=== PATIENT | female | born 1970 | race Two or more races ===

== ENCOUNTER 2024-12-19 18:11 | Emergency (ER) | payer BC, OTHER ==
[~2024-12-19] VITALS: Ht 160 cm; Wt 67.1 kg
[2024-12-19 18:12] VITALS: BP 157/90; PULSE 60; RESP 15; TEMP 97.5; O2SAT 98
== END 2024-12-19 22:23 | disposition left against medical advice (07) ==
LOC: ER 18:11
DX: R10.9 Unspecified abdominal pain (principal)

== ENCOUNTER 2024-12-20 09:35 | Inpatient (IN) | payer BC ==
[~2024-12-20] VITALS: Ht 160 cm; Wt 71.0 kg
--- NOTE | 2024-12-20 09:53 | ED.PDOC ---
GI ASSESSMENT HPI Comments A 54 YEAR OLD FEMALE PRESENTS TO THE ED WITH COMPLAINT OF LOWER BACK PAIN THAT RADIATES TO LEFT LOWER ABDOMEN AND BLOOD IN STOOL. PATIENT STATES SHE HAS BEEN EXPERIENCING LOWER BACK PAIN THAT RADIATES TO HER LEFT LOWER ABDOMEN OFF AND ON FOR THE PAST 6 MONTHS WITH HER PAIN RETURNING AGAIN OVER THE PAST 6 WEEKS. PATIENT REPORTS SHE HAS ALSO HAD BLOOD IN HER STOOL FOR THE PAST 2 WEEKS. PATIENT NOTES THAT SHE HAS A HISTORY OF DIVERTICULITIS THAT WAS DIAGNOSED 6 MONTHS AGO WHERE SHE WAS TREATED AND GOT BETTER, BUT NOTES HER PAIN RETURNED OVER THE LAST 6 WEEKS. THE PAIN LEVEL IS 8/10 AT THIS TIME. PATIENT DENIES FEVER, CHILLS, SHORTNESS OF BREATH, CHEST PAIN, NAUSEA, VOMITING, HEADACHE, OR OTHER COMPLAINTS. NO OTHER SYMPTOMS OR MODIFYING FACTORS AT THIS TIME. PATIENT IS ALERT, ORIENTED X 4, AND HAS STEADY GAIT. Chief Complaint: Flank Pain Time Seen by MD: 09:41 Reviewed Notes: Nurses Notes, Medications, Allergies Allergies: Coded Allergies: NO KNOWN ALLERGIES (Unverified , 12/19/24) Information Source: Patient Mode of Arrival: Ambulatory Timing: Weeks Duration: Since onset Prehospital treatment: None Quality: Aching, Cramping, Colicky Vomitus: None Stool: Blood Streaked Severity: Moderate Recent: None Recent Hx of: Other (DIVERTICULITIS) Pain Location: LLQ Modifying Factors: Nothing Associated sign and symptoms: Abdominal Pain, Blood in Stool Past Medical History Past Medical History (Other): DIVERTICULITIS Surgical History: Denies all surgeries MERCURY CRACKING TESTER History: No Pertinent MERCURY CRACKING TESTER History Family History Family History: Reviewed,noncontributory to illness Social History Smoker: Non-Smoker Alcohol: Denies ETOH Use Drugs: Denies Drug Use Lives In: Home Constitutional: denies: chills, diaphoresis, fatigue, fever, malaise, sweats, weakness, others EENTM: denies: blurred vision, double vision, ear bleeding, ear discharge, ear drainage, ear pain, ear ringing, eye pain, eye redness, hearing loss, mouth pain, mouth swelling, nasal discharge, nose bleeding, nose congestion, nose pain, photophobia, tearing, throat pain, throat swelling, voice changes, others Respiratory: denies: cough, hemoptysis, orthopnea, SOB at rest, shortness of breath, SOB with excertion, stridor, wheezing, others Cardiovascular: denies: chest pain, dizzy spells, diaphoresis, Dyspnea on exertion, edema, irregular heart beat, left arm pain, lightheadedness, palpitations, PND, syncope, others Gastrointestinal: reports: abdominal pain, blood streaked bowels; denies: abdomen distended, constipated, diarrhea, dysphagia, difficulty swallowing, hematemesis, melena, nausea, poor appetite, poor fluid intake, rectal bleeding, rectal pain, vomiting, others Genitourinary: denies: abnormal vagina bleeding, burning, dyspareunia, dysuria, flank pain, frequency, hematuria, incontinence, pain, , vagina discharge, urgency, others Neurological: denies: dizziness, fainting, headache, left sided numbness, left sided weakness, numbness, paresthesia, pre-existing deficit, right sided numbness, right sided weakness, seizure, speech problems, tingling, tremors, weakness, others Musculoskeletal: reports: back pain; denies: gout, joint pain, joint swelling, muscle pain, muscle stiffness, neck pain, others Integumetry: denies: bruises, change in color, change in hair/nails, dryness, laceration, lesions, lumps, rash, wounds, others Allergic/Immunocompromised: denies: Difficulty Healing, Frequent Infections, Hives, Itching, others Hematologic/Lymphatic: denies: anemia, blood clots, easy bleeding, easy bruising, swollen glands, others Endocrine: denies: excessive hunger, excessive sweating, excessive thirst, excessive urination, flushing, intolerance to cold, intolerance to heat, unexplained weight gain, unexplained weight loss, others Psychiatric: denies: anxiety, bipolar disorder, depression, hopeless, panic disorder, schizophrenia, sleepless, suicidal, others All Other Systems: Reviewed and Negative Physical Exam General Appearance: Mild Distress, Normal HEENT: Normal ENT Inspection, PERRL/EOMI, Pharynx Normal, TMs Normal Neck: Full Range of Motion, Non-Tender, Normal, Normal Inspection Respiratory: Chest Non-Tender, Lungs Clear, No Accessory Muscle Use, No Respiratory Distress, Normal Breath Sounds Cardiovascular: No Edema, No JVD, No Murmur, No Gallop, Normal Peripheral Pulses, Regular Rate/Rhythm Breast Exam: Deferred Gastrointestinal: LLQ, No Organomegaly, No Pulsatile Mass, Normal Bowel Sounds, Soft, Tenderness (LEFT LOWER ABD, MILD GUARDING, NO REBOUND TENDERNESS. ) Genitalia: Deferred Pelvic: Normal External Exam Rectal: Deferred Extremities: No calf tenderness, Normal capillary refill, Normal inspection, Normal range of motion, Non-tender, No pedal edema Musculoskeletal : Apperance: Normal Neurologic: Alert, religious education director II-XII nml as Tested, No Motor Deficits, Normal Affect, Normal Mood, No Sensory Deficits Cerebellar Function: Normal Reflexes: Normal Skin: Dry, Normal Color, Warm Peripheral Pulses: 2+ carotid (R), 2+ carotid (L) Lymphatic: No Adenopathy Was a procedure done? Was a procedure done?: No GI differential Dx Differential Diagnosis: Bowel Obstruction, Constipation, Diverticular disease, Gastritis/PUD, UTI, Dehydration, Electrolyte Imbalance, Kidney Stone X-Ray, Labs, Meds, VS Vital Signs Date Time Temp Pulse Resp B/P (MAP) Pulse Ox O2 Delivery O2 Flow Rate FiO2 12/20/24 10:58 98.1 64 18 122/75 (91) 97 98.1 12/20/24 10:58 64 18 97 Room Air 12/20/24 09:37 97.9 66 18 118/58 97 97.9 Lab Test 12/20/24 11:14 12/20/24 11:05 12/20/24 10:04 Range/Units Stool Occult Blood Sample #3 Negative Negative Urine Color Colorless Yellow Urine Clarity Clear Clear Urine pH 6.5 5.0-9.0 Urine Specific [place] 1.006 1.001-1.035 Urine Protein Negative Negative Urine Ketones Negative Negative Urine Blood Negative Negative /uL Urine Nitrite Negative Negative Urine Bilirubin Negative Negative Urine Urobilinogen Normal Negative mg/dL Urine Leukocyte Esterase Negative Negative /uL Urine RBC <1 0 - 4 /hpf Urine Microscopic WBC 1 0-5 /HPF Urine Squamous Epithelial Cells Few <5 /hpf Urine Bacteria None seen None Seen /hpf Urine Glucose Normal Normal mg/dL White Blood Count 5.8 4.4-10.8 10^3/uL Red Blood Count 4.87 4.0-5.20 10^6/uL Hemoglobin 15.5 12.2-16.2 g/dL Hematocrit 45.8 36.0-46.0 % Mean Corpuscular Volume 94.0 80.0-100.0 fL Mean Corpuscular Hemoglobin 31.8 28.0-32.0 pg Mean Corpuscular Hemoglobin Concent 33.9 32.0-36.0 g/dL Red Cell Distribution Width 12.9 11.8-14.3 % Platelet Count 310 140-450 10^3/uL Mean Platelet Volume 8.2 6.9-10.8 fL Neutrophils (%) (Auto) 53.7 37.0-80.0 % Lymphocytes (%) (Auto) 35.4 10.0-50.0 % Monocytes (%) (Auto) 7.5 0.0-12.0 % Eosinophils (%) (Auto) 2.4 0.0-7.0 % Basophils (%) (Auto) 1.0 0.0-2.0 % Neutrophils # (Auto) 3.1 1.6-8.6 10 ^3/uL Lymphocytes # (Auto) 2.0 0.4-5.4 10 ^3/uL Monocytes # (Auto) 0.4 0-1.3 10 ^3/uL Eosinophils # (Auto) 0.1 0-0.8 10 ^3/uL Basophils # (Auto) 0.1 0-0.2 10 ^3/uL Nucleated Red Blood Cells 0.0 % Sodium Level 142 136-145 mmol/L Potassium Level 4.1 3.5-5.1 mmol/L Chloride Level 104 98-107 mmol/L Carbon Dioxide Level 27 20-31 mmol/L Anion Gap 11 5-15 Blood Urea Nitrogen 8 L 9-23 mg/dL Creatinine 0.62 0.550-1.02 mg/dL Glomerular Filtration Rate Calc 106 >90 mL/min BUN/Creatinine Ratio 12.9 10.0-20.0 Serum Glucose 82 74-106 mg/dL Lactic Acid Level 1.1 0.4-2.0 mmol/L Calcium Level 9.4 8.7-10.4 mg/dL Total Bilirubin 0.6 0.2-1.0 mg/dL Aspartate Amino Transferase (AST) 16 13-40 U/L Alanine Aminotransferase (ALT) 18 7-40 U/L Alkaline Phosphatase 73 46-116 U/L Total Protein 7.4 5.7-8.2 g/dL Albumin 4.5 3.2-4.8 g/dL Lipase 33 12-53 U/L Current Medications Medications (Trade) Dose Ordered Sig/Zach Route Start Time Stop Time Status Last Admin Sodium Chloride 1,000 ml @ 1,000 mls/hr Q1H ONCE IV 12/20/24 12:15 12/20/24 13:14 DC 12/20/24 13:13 Ketorolac Tromethamine (Toradol Injection) 30 mg ONCE ONCE IV 12/20/24 12:45 12/20/24 12:46 DC 12/20/24 12:45 PATIENT: MATTEO MADISONCCT: [id number]: [id number] : 1970 LOC: ER ROOM / BED: / AGE / SEX: 54 / F ADM STATUS: REG ER SERVICE [id number] ORDERING PHYSICIAN: OPHELIA FERNANDEZ PROCEDURE(s): ABPL - CT AB PEL WO CON-NO ORAL OR IV REASON: LEFT SIDE ABD PAIN WITH BLOOD IN THE STOOL ORDER NUMBER(s): [id number], ACCESSION NUMBER(s): [id number] Exam: CT CT AB PEL WO CON-NO ORAL OR IV History: LEFT SIDE ABD PAIN WITH BLOOD IN THE STOOL Comparison Study: None Technique: Multidetector spiral CT of the abdomen was performed from lung bases to pubic symphysis. Imaging was performed without IV contrast. Axial, coronal and sagittal multiplanar reformats were obtained from the axial data set by the technologist. Radiation Dose : 1. Abdomen/Pelvis: CTDIvol 6.17 mGy, DLP 317.71 mGy*cm. Findings: Evaluation of solid organs is limited due to lack of intravenous contrast use. Lung Bases: No acute or significant lung base finding. Normal heart size. No pleural or pericardial effusion. Liver: The liver is normal in size. No focal lesions. Gallbladder and Biliary Tree: Cholecystectomy. No biliary ductal dilatation. Spleen: Unremarkable Pancreas: Unremarkable. Adrenal Glands: Unremarkable Kidneys: Unremarkable. Bladder: Unremarkable. Bowel: No acute bowel abnormality. Normal appendix. Ascites: Absent Lymphadenopathy: No lymphadenopathy Abdominal Wall and Mesentery: Unremarkable. Vasculature: Abdominal aorta is normal in size. Pelvic Organs: Hysterectomy. No adnexal masses. Musculoskeletal: No aggressive focal bony lesions, acute fractures or dislocation. IMPRESSION: No acute abdominal or pelvic findings. Radiation optimization: All CT scans at this facility use at least one of these dose optimization techniques: automated exposure control mA and/or kV adjustment per patient size (includes targeted exams where dose is matched to clinical indication) or iterative reconstruction. ATED BY: MIKE LEZAMA MD DICTATED DATE/TIME: 12/20/241038 SIGNED BY: MIKE LEZAMA MD SIGNED DATE/TIME: 12/20/241038 CC: X-Ray, Labs, Meds, VS Comment EXTERNAL MEDICAL RECORDS REVIEWED: [NONE] INDEPENDENT HISTORIANS: [NONE] SOCIAL DETERMINANTS OF HEALTH: [NONE] LABS ORDERED: CBC, CMP, LIPASE, OCCULT BLOOD STOOL REVIEWED AND INTERPRETED RESULTS: NORMAL IMAGING ORDERED: CT ABD/PEL TREATMENTS ORDERED: 0.9 NS 1L IV BOLUS, ZOFRAN 4MG IVP AND TORADOL 30MG IVP PROCEDURES PERFORMED: NONE CRITICAL CARE TIME: NONE I HAVE DISCUSSED THE PATIENT WITH THE ATTENDING PHYSICIAN DR. BRIGHT AND HE AGREES WITH THE PATIENT'S PLAN OF CARE. UPON MY PHYSICAL EXAMINATION, THE PATIENT WAS WELL-APPEARING, BUT HAD TENDERNESS NOTED UPON PALPATION TO HER ABDOMEN, BUT NO REBOUND TENDERNESS NOTED UPON PALPATION. THE PATIENT'S CT SCAN AND LAB RESULTS WERE ALL NORMAL, BUT THE PATIENT CONTINUED TO HAVE ABDOMINAL PAIN DESPITE TREATMENT. DUE TO THE PATIENT'S INTRACTABLE PAIN DESPITE TREATMENT HERE IN THE ED, I HAVE DETERMINED THE PATIENT NEEDS TO BE EVALUATED FOR FURTHER TREATMENT AND EVALUATION. ON-CALL HOSPITALIST WILL BE CONTACTED FOR IN HIS IN HIS THE PATIENT. Images Reviewed?: Images reviewed and evaluated by me Time of 1ST Reevaluation: 12:26 Reevaluation 1ST: Unchanged Patient Education/Counseling: Diagnosis, Treatment Family Education/Counseling: Diagnosis, Treatment SEPSIS Sepsis Screen Date sepsis recognized/suspect: Dec 20, 2024 Time Sepsis recognized/suspect: 939 Recent Procedure: No On Antibiotic Therapy: No Respiratory Rate >20: No Heart Rate >90: No Temp<36 C (96.8 F) or >38.3 C: No SBP <90 or MAP <65 mmHG: No New Acute Mental Status Change: No Is the patient on CPAP, BIPAP,: No Physician Orders Ct Ab Pel Wo Con-No Oral Or Iv (12/20/24 09:53) Heplock Iv (12/20/24 ) Vital Signs Date Time Temp Pulse Resp B/P (MAP) Pulse Ox O2 Delivery O2 Flow Rate FiO2 12/20/24 10:58 98.1 64 18 122/75 (91) 97 98.1 11/13/25 10:58 64 18 97 Room Air 12/20/24 09:37 97.9 66 18 118/58 97 97.9 Laboratory Tests Test 12/20/24 10:04 Lactic Acid Level 1.1 mmol/L (0.4-2.0) White Blood Count 5.8 10^3/uL (4.4-10.8) Medications Medications Dose Ordered Sig/Zach Route Start Time Stop Time Status Last Admin Dose Admin Ketorolac Tromethamine 30 mg ONCE ONCE IV 12/20/24 12:45 12/20/24 12:46 DC 12/20/24 12:45 Sodium Chloride 1,000 ml @ 1,000 mls/hr Q1H ONCE IV 12/20/24 12:15 12/20/24 13:14 DC 12/20/24 13:13 Departure 1 Departure Time of Disposition: 12:26 Impression: Primary Impression: Intractable left lower quadrant abdominal pain Additional Impression: Abdominal pain of unknown etiology Disposition: ADMITTED INPATIENT Condition: Serious Critical Care Note Critical Care Time?: No Stability Stability form required: Yes Unstable for transfer: Requires medication, ED Physician Assesment, Possible rapid decline I personally scribed for OPHELIA FERNANDEZ ([email or web address]) on 12/20/24 at 09:53. Electronically submitted by Artie Espinoza ([email or web address]). I personally scribed for OPHELIA FERNANDEZ ([email or web address]) on 12/20/24 at 11:56. Electronically submitted by Artie Espinoza ([email or web address]). I personally scribed for OPHELIA FERNANDEZ ([email or web address]) on 12/20/24 at 13:15. Electronically submitted by Artie Espinoza ([email or web address]). OPHELIA FERNANDEZ Dec 20, 2024 09:53
[2024-12-20 10:23] LABS: Hematocrit 45.8 % (36.0-46.0); Hemoglobin 15.5 g/dL (12.2-16.2); Mean Corpuscular Hemoglobin 31.8 pg (28.0-32.0); Mean Corpuscular Volume 94.0 fL (80.0-100.0); Nucleated Red Blood Cells % 0.0 %
[2024-12-20 10:38] LABS: Alanine Aminotransferase 18 U/L (7-40); Albumin 4.5 g/dL (3.2-4.8); Alkaline Phosphatase 73 U/L (46-116); Anion Gap 11 (5-15); BUN/Creatinine Ratio 12.9 (10.0-20.0); Bilirubin, Total 0.6 mg/dL (0.2-1.0); Calcium 9.4 mg/dL (8.7-10.4); Carbon Dioxide 27 mmol/L (20-31); Chloride 104 mmol/L (98-107); Glucose 82 mg/dL (74-106); Potassium 4.1 mmol/L (3.5-5.1); Sodium 142 mmol/L (136-145); Total Protein 7.4 g/dL (5.7-8.2)
[2024-12-20 10:41] LABS: Blood Urea Nitrogen 8 mg/dL (9-23)
--- NOTE | 2024-12-20 10:41 | DVH ---
Exam: CT CT AB PEL WO CON-NO ORAL OR IV History: LEFT SIDE ABD PAIN WITH BLOOD IN THE STOOL Comparison Study: None Technique: Multidetector spiral CT of the abdomen was performed from lung bases to pubic symphysis. Imaging was performed without IV contrast. Axial, coronal and sagittal multiplanar reformats were obtained from the axial data set by the technologist. Radiation Dose : 1. Abdomen/Pelvis: CTDIvol 6.17 mGy, DLP 317.71 mGy*cm. Findings: Evaluation of solid organs is limited due to lack of intravenous contrast use. Lung Bases: No acute or significant lung base finding. Normal heart size. No pleural or pericardial effusion. Liver: The liver is normal in size. No focal lesions. Gallbladder and Biliary Tree: Cholecystectomy. No biliary ductal dilatation. Spleen: Unremarkable Pancreas: Unremarkable. Adrenal Glands: Unremarkable Kidneys: Unremarkable. Bladder: Unremarkable. Bowel: No acute bowel abnormality. Normal appendix. Ascites: Absent Lymphadenopathy: No lymphadenopathy Abdominal Wall and Mesentery: Unremarkable. Vasculature: Abdominal aorta is normal in size. Pelvic Organs: Hysterectomy. No adnexal masses. Musculoskeletal: No aggressive focal bony lesions, acute fractures or dislocation. IMPRESSION: No acute abdominal or pelvic findings. Radiation optimization: All CT scans at this facility use at least one of these dose optimization techniques: automated exposure control mA and/or kV adjustment per patient size (includes targeted exams where dose is matched to clinical indication) or iterative reconstruction.
[2024-12-20 11:43] LABS: Urine Protein, UAD Negative (Negative)
[2024-12-20] MEDS: KETOROLAC TROMETH 30 MG/ML 1ML VIAL IV ONE ×2 (12:15→12:45)
[2024-12-20] MEDS: SODIUM CHLORIDE 0.9% 1,000 ML IV ONE (13:13)
--- NOTE | 2024-12-20 14:34 | DVHHP2 ---
History of Present Illness Reason for Visit: Abdominal pain History of Present Illness Maribel Kirkland is a 54-year-old female with past medical history of diverticulitis (patient denies), left breast tumor, cholecystectomy, and hysterectomy who presents to the ED with abdominal pain and blood in the stool that started 2 weeks ago. Patient reports that her abdominal pain has been ongoing for the last 6 months. She reports that she had 2 bloody stools yesterday but today none. She reports that she saw GI specialist 6 weeks ago and was given Metamucil and was told to follow up 6 months afterwards. Patient reports that the abdominal pain is 8/10 aching and constant in nature. She reports that standing or sitting makes it worse. Patient denies any recent trauma or injury, recent sick contacts, recent travels, recent ingestion of spoiled food, chest pain, shortness of breath, fever, chills, nausea, vomiting, diarrhea, or urinary symptoms. Past Medical History Diverticulitis, patient denies Left breast tumor Past Surgical History: Cholecystectomy, Hysterectomy Family History: Cancer, Other (Heart disease and lung cancer) Smoke: No ALCOHOL: none Drugs: None Lives: with Family Domestic Violence: Neg Review of Systems Gastrointestinal: Abdominal Pain, Hematochezia Allergies: Coded Allergies: NO KNOWN ALLERGIES (Unverified , 12/19/24) Exam Vital Signs Vital Signs Date Time Temp Pulse Resp B/P (MAP) Pulse Ox O2 Delivery O2 Flow Rate FiO2 12/20/24 10:58 98.1 64 18 122/75 (91) 97 98.1 12/20/24 10:58 Room Air General Appearance: Alert, Oriented X3, Cooperative, No acute distress HEENT: Atraumatic, PERRLA, EOMI Respiratory: Clear to auscultation, Normal air movement Cardiovascular: Normal S1, Normal S2, No murmurs Abdominal: Normal bowel sounds, Soft Extremities: No clubbing, No cyanosis, No edema, Normal pulses Skin: No significant lesion Neuro: Normal gait, Normal speech, Strength at 5/5 X4 ext, Normal tone, Sensation intact Psych/Mental Status: Mental status NL, Mood NL Labs/Xrays Labs Test 12/20/24 11:14 12/20/24 11:05 12/20/24 10:04 Range/Units Stool Occult Blood Sample #3 Negative Negative Urine Color Colorless Yellow Urine Clarity Clear Clear Urine pH 6.5 5.0-9.0 Urine Specific [place] 1.006 1.001-1.035 Urine Protein Negative Negative Urine Ketones Negative Negative Urine Blood Negative Negative /uL Urine Nitrite Negative Negative Urine Bilirubin Negative Negative Urine Urobilinogen Normal Negative mg/dL Urine Leukocyte Esterase Negative Negative /uL Urine RBC <1 0 - 4 /hpf Urine Microscopic WBC 1 0-5 /HPF Urine Squamous Epithelial Cells Few <5 /hpf Urine Bacteria None seen None Seen /hpf Urine Glucose Normal Normal mg/dL White Blood Count 5.8 4.4-10.8 10^3/uL Red Blood Count 4.87 4.0-5.20 10^6/uL Hemoglobin 15.5 12.2-16.2 g/dL Hematocrit 45.8 36.0-46.0 % Mean Corpuscular Volume 94.0 80.0-100.0 fL Mean Corpuscular Hemoglobin 31.8 28.0-32.0 pg Mean Corpuscular Hemoglobin Concent 33.9 32.0-36.0 g/dL Red Cell Distribution Width 12.9 11.8-14.3 % Platelet Count 310 140-450 10^3/uL Mean Platelet Volume 8.2 6.9-10.8 fL Neutrophils (%) (Auto) 53.7 37.0-80.0 % Lymphocytes (%) (Auto) 35.4 10.0-50.0 % Monocytes (%) (Auto) 7.5 0.0-12.0 % Eosinophils (%) (Auto) 2.4 0.0-7.0 % Basophils (%) (Auto) 1.0 0.0-2.0 % Neutrophils # (Auto) 3.1 1.6-8.6 10 ^3/uL Lymphocytes # (Auto) 2.0 0.4-5.4 10 ^3/uL Monocytes # (Auto) 0.4 0-1.3 10 ^3/uL Eosinophils # (Auto) 0.1 0-0.8 10 ^3/uL Basophils # (Auto) 0.1 0-0.2 10 ^3/uL Nucleated Red Blood Cells 0.0 % Sodium Level 142 136-145 mmol/L Potassium Level 4.1 3.5-5.1 mmol/L Chloride Level 104 98-107 mmol/L Carbon Dioxide Level 27 20-31 mmol/L Anion Gap 11 5-15 Blood Urea Nitrogen 8 L 9-23 mg/dL Creatinine 0.62 0.550-1.02 mg/dL Glomerular Filtration Rate Calc 106 >90 mL/min BUN/Creatinine Ratio 12.9 10.0-20.0 Serum Glucose 82 74-106 mg/dL Lactic Acid Level 1.1 0.4-2.0 mmol/L Calcium Level 9.4 8.7-10.4 mg/dL Total Bilirubin 0.6 0.2-1.0 mg/dL Aspartate Amino Transferase (AST) 16 13-40 U/L Alanine Aminotransferase (ALT) 18 7-40 U/L Alkaline Phosphatase 73 46-116 U/L Total Protein 7.4 5.7-8.2 g/dL Albumin 4.5 3.2-4.8 g/dL Lipase 33 12-53 U/L Exam: CT CT AB PEL WO CON-NO ORAL OR IV History: LEFT SIDE ABD PAIN WITH BLOOD IN THE STOOL Comparison Study: None Technique: Multidetector spiral CT of the abdomen was performed from lung bases to pubic symphysis. Imaging was performed without IV contrast. Axial, coronal and sagittal multiplanar reformats were obtained from the axial data set by the technologist. Radiation Dose : 1. Abdomen/Pelvis: CTDIvol 6.17 mGy, DLP 317.71 mGy*cm. Findings: Evaluation of solid organs is limited due to lack of intravenous contrast use. Lung Bases: No acute or significant lung base finding. Normal heart size. No pleural or pericardial effusion. Liver: The liver is normal in size. No focal lesions. Gallbladder and Biliary Tree: Cholecystectomy. No biliary ductal dilatation. Spleen: Unremarkable Pancreas: Unremarkable. Adrenal Glands: Unremarkable Kidneys: Unremarkable. Bladder: Unremarkable. Bowel: No acute bowel abnormality. Normal appendix. Ascites: Absent Lymphadenopathy: No lymphadenopathy Abdominal Wall and Mesentery: Unremarkable. Vasculature: Abdominal aorta is normal in size. Pelvic Organs: Hysterectomy. No adnexal masses. Musculoskeletal: No aggressive focal bony lesions, acute fractures or dislocation. IMPRESSION: No acute abdominal or pelvic findings. SEPSIS Sepsis Screen Date sepsis recognized/suspect: Dec 20, 2024 Time Sepsis recognized/suspect: 939 Recent Procedure: No On Antibiotic Therapy: No Respiratory Rate >20: No Heart Rate >90: No Temp<36 C (96.8 F) or >38.3 C: No SBP <90 or MAP <65 mmHG: No New Acute Mental Status Change: No Is the patient on CPAP, BIPAP,: No Physician Orders Ct Ab Pel Wo Con-No Oral Or Iv (12/20/24 09:53) Heplock Iv (12/20/24 ) Vital Signs Date Time Temp Pulse Resp B/P (MAP) Pulse Ox O2 Delivery O2 Flow Rate FiO2 12/20/24 10:58 98.1 64 18 122/75 (91) 97 98.1 12/20/24 10:58 64 18 97 Room Air 12/20/24 09:37 97.9 66 18 118/58 97 97.9 Laboratory Tests Test 12/20/24 10:04 Lactic Acid Level 1.1 mmol/L (0.4-2.0) White Blood Count 5.8 10^3/uL (4.4-10.8) Medications Medications Dose Ordered Sig/Zach Route Start Time Stop Time Status Last Admin Dose Admin Ketorolac Tromethamine 30 mg ONCE ONCE IV 12/20/24 12:45 12/20/24 12:46 DC 12/20/24 12:45 30 MG Sodium Chloride 1,000 ml @ 1,000 mls/hr Q1H ONCE IV 12/20/24 12:15 12/20/24 13:14 DC 12/20/24 13:13 1,000 MLS/HR Assessment/Plan Assessment/Plan Assessment Intractable abdominal pain History of diverticulitis History of left breast tumor History of cholecystectomy History of hysterectomy Plan Admit to med surge Antiemetics Pain management Stool OB UA NS 1 L given in ED CT abdomen and pelvis noted Lactic level Lipase UA Diet Home medications reconciled DVT prophylaxis-SCDs PUD prophylaxis-PPIs Discussed plan of care with patient and nurse Consider GI consult [id number] Preventive counseling healthy eating habits, physical activity, and regular checkups Plan discussed with: Patient Date of Service: Dec 20, 2024 Billing Provider: JOIE MONTANO Common Visit Codes: [id number] INP/OBS CARE (HIGH) Secondary Visit Codes: [id number] COUNSELING IND JOIE MONTANO Dec 20, 2024 14:34
[2024-12-20 15:23] LABS: Iron 48.0 ug/dL (50-170); Total Iron Binding Capacity 328.0 ug/dL (250-425)
[2024-12-20 15:53] VITALS: PULSE 60; RESP 18; O2SAT 98
[2024-12-20] MEDS: ONDANSETRON HCL 4 MG/2 ML VIAL IV PRN (16:07)
[2024-12-20] MEDS: HYDROcodone-ACET 5/325MG TAB PO PRN (16:07)
[2024-12-20 17:00] VITALS: BP 140/75; PULSE 62; RESP 18; TEMP 98.1; O2SAT 95
[2024-12-20 18:00] VITALS: BP 140/75; PULSE 62; TEMP 98.1; O2SAT 95
[2024-12-20 20:00] VITALS: PULSE 74; RESP 18; O2SAT 97
[2024-12-20 21:00] VITALS: BP 120/74; PULSE 56; RESP 18; TEMP 98.4; O2SAT 97
[2024-12-21] VITALS (8 sets, daily range): BP systolic 112–138; BP diastolic 65–85; PULSE 53–65; RESP 16–18; TEMP 97.6–98.2; O2SAT 95–98
[2024-12-21] MEDS: MORPHINE SULFATE INJ 2 MG/ml SYRG IV PRN (00:56)
[2024-12-21 06:11] LABS: Hematocrit 43.6 % (36.0-46.0); Hemoglobin 14.7 g/dL (12.2-16.2); Mean Corpuscular Hemoglobin 31.6 pg (28.0-32.0); Mean Corpuscular Volume 93.7 fL (80.0-100.0); Nucleated Red Blood Cells % 0.1 %
[2024-12-21 06:31] LABS: Alanine Aminotransferase 18 U/L (7-40); Albumin 4.1 g/dL (3.2-4.8); Alkaline Phosphatase 63 U/L (46-116); Anion Gap 9 (5-15); BUN/Creatinine Ratio 14.7 (10.0-20.0); Blood Urea Nitrogen 10 mg/dL (9-23); Calcium 9.0 mg/dL (8.7-10.4); Carbon Dioxide 28 mmol/L (20-31); Chloride 103 mmol/L (98-107); Glucose 84 mg/dL (74-106); Potassium 3.9 mmol/L (3.5-5.1); Sodium 140 mmol/L (136-145); Total Protein 6.8 g/dL (5.7-8.2)
[2024-12-21 06:32] LABS: Bilirubin, Total 0.6 mg/dL (0.2-1.0)
[2024-12-21 11:25] LABS: Hepatitis B Surface Antigen Negative (Negative)
[2024-12-21 11:42] LABS: Hepatitis C Antibody Negative (Negative)
--- NOTE | 2024-12-21 13:23 | DVHPN2 ---
Reviewed: Care Plan, H&P, Labs, Medications, Previous Orders, Radiology Changes from previous H/P or p: No Changes Gastrointestinal: Abdominal Pain, Hematochezia Objective Vitals Vital Signs Date Time Temp Pulse Resp B/P (MAP) Pulse Ox O2 Delivery O2 Flow Rate FiO2 12/21/24 09:00 98.0 53 18 127/65 (85) 95 98.0 12/21/24 08:00 Room Air* 0 21 Intake/Output Intake and Output 12/21/24 07:00 Intake Total 2000 ml Balance 2000 ml Intake Oral 1000 ml IV Total 1000 ml # Voids 3 Medications Current Medications Medications Dose Ordered Sig/Zach Route Start Time Stop Time Status Last Admin Dose Admin Acetaminophen/ Hydrocodone Bitart 1 tab Q4HP PRN PO 12/20/24 14:30 12/21/24 12:21 1 TAB Ondansetron HCl 4 mg Q4HP PRN IV 12/20/24 14:30 12/21/24 12:20 4 MG Acetaminophen 650 mg Q6HP PRN PO 12/20/24 14:30 Morphine Sulfate 2 mg Q4HPRN PRN IV 12/20/24 14:30 12/21/24 00:56 2 MG Laboratory Results Laboratory Tests 12/21/24 04:51 Chemistry Test 12/21/24 04:51 Albumin 4.1 g/dL (3.2-4.8) Calcium Level 9.0 mg/dL (8.7-10.4) Total Protein 6.8 g/dL (5.7-8.2) LFT Test 12/21/24 04:51 Alanine Aminotransferase (ALT) 18 U/L (7-40) Alkaline Phosphatase 63 U/L (46-116) Aspartate Amino Transferase (AST) 24 U/L (13-40) Total Bilirubin 0.6 mg/dL (0.2-1.0) Urinalysis Test 12/20/24 11:05 Urine Color Colorless (Yellow) Urine Clarity Clear (Clear) Urine pH 6.5 (5.0-9.0) Urine Specific [place] 1.006 (1.001-1.035) Urine Protein Negative (Negative) Urine Ketones Negative (Negative) Urine Blood Negative /uL (Negative) Urine Nitrite Negative (Negative) Urine Bilirubin Negative (Negative) Urine Urobilinogen Normal mg/dL (Negative) Urine Leukocyte Esterase Negative /uL (Negative) Urine RBC <1 /hpf (0 - 4) Urine Microscopic WBC 1 /HPF (0-5) Urine Squamous Epithelial Cells Few /hpf (<5) Urine Bacteria None seen /hpf (None Seen) Urine Glucose Normal mg/dL (Normal) Labs and/or images reviewed: Labs reviewed by me, Image(s) reviewed by me Assessment/Plan Assessment/Plan Blood in the stool: Hemoglobin 15.5, consult for Acute intractable abdominal pain History of diverticulitis History of left breast tumor Plan discussed with: Patient Date of Service: Dec 21, 2024 Billing Provider: MICHAEL MURPHY MD Common Visit Codes: [id number] INP/OBS CARE(LOW) MICHAEL MURPHY MD Dec 21, 2024 13:23
--- NOTE | 2024-12-21 20:16 | DVHINCON2 ---
Date of service: Dec 21, [address] Aparicio Reason for Consultation Abdominal pain rectal bleeding History of Present Illness This 50-year-old female presented to the emergency room with the complaints of abdominal pain in the left lower quadrant and some mild back pain and the pain was described as severe in the left lower quadrant and suprapubic area the pain has been going on for about six weeks apparently she had some pain in the lower abdomen for the last six months she was also told has not diverticulitis. For which she had treatment with the antibiotics Denies diarrhea has some complaints of mild constipation had some mild rectal bleeding small amount about two weeks ago but none now no nausea vomiting or other GI problems Past Medical History Diverticulitis Past Surgical History None Family History: Chronic obstructive pulmonary disease G8 FATHER, Onset:Unknown FH: lung cancer G8 FATHER, Onset:Unknown Family History Non contribute Social History Denies smoking or drinking Allergies: Coded Allergies: NO KNOWN ALLERGIES (Unverified , 12/20/24) Home Meds No Active Prescriptions or Reported Meds Current Medications Current Medications Medications (Trade) Dose Ordered Sig/Zach Route PRN Reason Start Time Stop Time Status Last Admin Metronidazole 100 ml @ 100 mls/hr Q8HR IV 12/21/24 15:27 Levofloxacin/ Dextrose 100 ml @ 100 mls/hr DAILY IV 12/22/24 10:00 Review of Systems Noncontributory Vital Signs Vital Signs Date Time Temp Pulse Resp B/P (MAP) Pulse Ox O2 Delivery O2 Flow Rate FiO2 12/21/24 17:00 98.2 56 17 131/80 (97) 95 98.2 12/21/24 08:00 Room Air* 0 21 Physical Exam Moderately built and nourished female in no acute distress but uncomfortable from the pain in the left lower quadrant HEENT examination no pallor no icterus Lungs are clear Cardiovascular unremarkable Abdomen is soft with tenderness in the left lower quadrant with some mild guarding no rigidity bowel sounds normal no masses Extremities no edema Neuro grossly intact Labs/Diagnostic Data Labs Test 12/21/24 04:51 12/20/24 20:03 12/20/24 14:54 12/20/24 11:14 Range/Units White Blood Count 6.0 4.4-10.8 10^3/uL Red Blood Count 4.65 4.0-5.20 10^6/uL Hemoglobin 14.7 12.2-16.2 g/dL Hematocrit 43.6 36.0-46.0 % Mean Corpuscular Volume 93.7 80.0-100.0 fL Mean Corpuscular Hemoglobin 31.6 28.0-32.0 pg Mean Corpuscular Hemoglobin Concent 33.8 32.0-36.0 g/dL Red Cell Distribution Width 13.1 11.8-14.3 % Platelet Count 292 140-450 10^3/uL Mean Platelet Volume 8.5 6.9-10.8 fL Neutrophils (%) (Auto) 43.5 37.0-80.0 % Lymphocytes (%) (Auto) 42.9 10.0-50.0 % Monocytes (%) (Auto) 10.2 0.0-12.0 % Eosinophils (%) (Auto) 2.6 0.0-7.0 % Basophils (%) (Auto) 0.8 0.0-2.0 % Neutrophils # (Auto) 2.6 1.6-8.6 10 ^3/uL Lymphocytes # (Auto) 2.6 0.4-5.4 10 ^3/uL Monocytes # (Auto) 0.6 0-1.3 10 ^3/uL Eosinophils # (Auto) 0.2 0-0.8 10 ^3/uL Basophils # (Auto) 0 0-0.2 10 ^3/uL Nucleated Red Blood Cells 0.1 % Sodium Level 140 136-145 mmol/L Potassium Level 3.9 3.5-5.1 mmol/L Chloride Level 103 98-107 mmol/L Carbon Dioxide Level 28 20-31 mmol/L Anion Gap 9 5-15 Blood Urea Nitrogen 10 9-23 mg/dL Creatinine 0.68 0.550-1.02 mg/dL Glomerular Filtration Rate Calc 103 >90 mL/min BUN/Creatinine Ratio 14.7 10.0-20.0 Serum Glucose 84 74-106 mg/dL Calcium Level 9.0 8.7-10.4 mg/dL Total Bilirubin 0.6 0.2-1.0 mg/dL Aspartate Amino Transferase (AST) 24 13-40 U/L Alanine Aminotransferase (ALT) 18 7-40 U/L Alkaline Phosphatase 63 46-116 U/L Total Protein 6.8 5.7-8.2 g/dL Albumin 4.1 3.2-4.8 g/dL Hepatitis B Surface Antigen Negative Negative Hepatitis C Antibody Negative Negative Iron Level 48 L 50-170 ug/dL Total Iron Binding Capacity 328 250-425 ug/dL Percent Iron Saturation 14.6 L 15-50 % Vitamin D 25-Hydroxy 42.3 30.0-100 ng/mL Folic Acid 17.71 >5.38 ng/mL Stool Occult Blood Sample #3 Negative Negative Test 12/20/24 11:05 12/20/24 10:04 Range/Units Urine Color Colorless Yellow Urine Clarity Clear Clear Urine pH 6.5 5.0-9.0 Urine Specific [place] 1.006 1.001-1.035 Urine Protein Negative Negative Urine Ketones Negative Negative Urine Blood Negative Negative /uL Urine Nitrite Negative Negative Urine Bilirubin Negative Negative Urine Urobilinogen Normal Negative mg/dL Urine Leukocyte Esterase Negative Negative /uL Urine RBC <1 0 - 4 /hpf Urine Microscopic WBC 1 0-5 /HPF Urine Squamous Epithelial Cells Few <5 /hpf Urine Bacteria None seen None Seen /hpf Urine Glucose Normal Normal mg/dL Reticulocyte Count (auto) 0.74 0.5-1.5 % Lactic Acid Level 1.1 0.4-2.0 mmol/L Lipase 33 12-53 U/L Assessment 54-year-old female with a history of abdominal pain in the left lower quadrant radiating to the back as well as suprapubic area with complaints of nausea has had some small amount of blood in the stool about two weeks ago with history of diverticulitis in the past treated with the antibiotics the pain is severe physical examination showed definite tenderness in the left lower quadrant with some minimal guarding no rigidity bowel sounds are normal no masses felt. Labs are unremarkable CAT scan of the abdomen without oral contrast showed no gross findings Clinical impression possible acute diverticulitis Other bowel pathology like irritable bowel or infectious colitis or ischemic colitis or other pathology can not be excluded though less likely Plan/Recommendation We will recommend IV antibiotics clear liquids If pain persists surgical intervention We will recommend to repeat the oral count repeat the CT scan of the abdomen and pelvis with oral contrast to delineate any definite pathology in the left lower quadrant especially diverticulitis or other pathology Stool for occult blood Follow hemoglobin closely Indefinitely we will need endoscopic evaluation of the colon as soon as such stabilized as soon as the abdominal pain is better, but with significant pain at this time with rebound history of diverticulitis in the recent past we will recommend to treat with antibiotics for now conservatively and do an elective colonoscopy later when she is better Thank you Dr. Morocho Plan discussed with: Patient KAILYN MOROCHO MD Dec 21, 2024 20:16
[2024-12-22] VITALS (7 sets, daily range): BP systolic 105–128; BP diastolic 66–83; PULSE 56–66; RESP 16–18; TEMP 98–98.2; O2SAT 94–99
[2024-12-22 06:20] LABS: Hematocrit 44.2 % (36.0-46.0); Hemoglobin 15.3 g/dL (12.2-16.2); Mean Corpuscular Hemoglobin 32.3 pg (28.0-32.0); Mean Corpuscular Volume 93.2 fL (80.0-100.0); Nucleated Red Blood Cells % 0.2 %
[2024-12-22] MEDS: ACETAMINOPHEN 325 MG TAB PO PRN (07:16)
--- NOTE | 2024-12-22 11:06 | DVHPN2 ---
Reviewed: Care Plan, H&P, Labs, Medications, Previous Orders, Radiology Changes from previous H/P or p: No Changes Gastrointestinal: Abdominal Pain, Hematochezia Objective Vitals Vital Signs Date Time Temp Pulse Resp B/P (MAP) Pulse Ox O2 Delivery O2 Flow Rate FiO2 12/22/24 09:20 98.1 57 16 105/66 (79) 95 98.1 12/22/24 08:00 Room Air* 0 21 Intake/Output Intake and Output 12/22/24 07:00 Intake Total 1925 ml Balance 1925 ml Intake Oral 1825 ml IV Total 100 ml # Voids 7 Medications Current Medications Medications Dose Ordered Sig/Zach Route Start Time Stop Time Status Last Admin Dose Admin Acetaminophen/ Hydrocodone Bitart 1 tab Q4HP PRN PO 12/20/24 14:30 12/22/24 01:20 1 TAB Ondansetron HCl 4 mg Q4HP PRN IV 12/20/24 14:30 12/22/24 07:17 4 MG Acetaminophen 650 mg Q6HP PRN PO 12/20/24 14:30 12/22/24 07:16 650 MG Morphine Sulfate 2 mg Q4HPRN PRN IV 12/20/24 14:30 12/21/24 00:56 2 MG Metronidazole 100 ml @ 100 mls/hr Q8HR IV 12/21/24 15:27 12/22/24 05:42 100 MLS/HR Levofloxacin/ Dextrose 100 ml @ 100 mls/hr DAILY IV 12/22/24 10:00 12/22/24 10:47 100 MLS/HR Laboratory Results Laboratory Tests 12/21/24 04:51 12/22/24 04:44 Urinalysis Test 12/20/24 11:05 Urine Color Colorless (Yellow) Urine Clarity Clear (Clear) Urine pH 6.5 (5.0-9.0) Urine Specific [place] 1.006 (1.001-1.035) Urine Protein Negative (Negative) Urine Ketones Negative (Negative) Urine Blood Negative /uL (Negative) Urine Nitrite Negative (Negative) Urine Bilirubin Negative (Negative) Urine Urobilinogen Normal mg/dL (Negative) Urine Leukocyte Esterase Negative /uL (Negative) Urine RBC <1 /hpf (0 - 4) Urine Microscopic WBC 1 /HPF (0-5) Urine Squamous Epithelial Cells Few /hpf (<5) Urine Bacteria None seen /hpf (None Seen) Urine Glucose Normal mg/dL (Normal) Labs and/or images reviewed: Labs reviewed by me, Image(s) reviewed by me Assessment/Plan Assessment/Plan Blood in the stool: Hemoglobin 15.5, Acute intractable abdominal pain History of diverticulitis Levaquin Flagyl GI consult by Dr. 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
[2024-12-22] MEDS: LACTULOSE 20Gm/30ML SOLN PO ONE (13:54)
--- NOTE | 2024-12-22 18:36 | DVHPN2 ---
Progress Note - Dictate Date Seen: Dec 22, 2024 Medical Necessity Reason Pt with a Central, PICC or Fol: No Subjective Patient is feeling slightly better today with the abdominal pain is much better though still persist in the left lower quadrant no fever no nausea vomiting diarrhea or bleeding vital signs Vital Sign Date Time Temp Pulse Resp B/P (MAP) Pulse Ox O2 Delivery O2 Flow Rate FiO2 12/22/24 17:32 98.2 66 16 121/79 (93) 95 98.2 12/22/24 08:00 Room Air* 0 21 Total Intake and Output 12/21/24 12/21/24 12/22/24 15:00 23:00 07:00 Intake Total 965 ml 960 ml Balance 965 ml 960 ml medications Current Medications Medications Dose Ordered Sig/Zach Route Start Time Stop Time Status Last Admin Dose Admin Acetaminophen/ Hydrocodone Bitart 1 tab Q4HP PRN PO 12/20/24 14:30 12/22/24 16:13 1 TAB Ondansetron HCl 4 mg Q4HP PRN IV 12/20/24 14:30 12/22/24 16:13 4 MG Acetaminophen 650 mg Q6HP PRN PO 12/20/24 14:30 12/22/24 13:54 650 MG Morphine Sulfate 2 mg Q4HPRN PRN IV 12/20/24 14:30 12/21/24 00:56 2 MG Metronidazole 100 ml @ 100 mls/hr Q8HR IV 12/21/24 15:27 12/22/24 13:54 100 MLS/HR Levofloxacin/ Dextrose 100 ml @ 100 mls/hr DAILY IV 12/22/24 10:00 12/22/24 10:47 100 MLS/HR objective Abdomen is soft mild tenderness in the left lower quadrant no rigidity no guarding no masses tenderness is much better than yesterday. Patient is on antibiotics laboratory and microbiology Laboratory Tests 12/22/24 04:44 12/21/24 04:51 Test 12/21/24 04:51 Range/Units Serum Glucose 84 74-106 mg/dL Assessment/Plan 54-year-old female with a history of abdominal pain in the left lower quadrant radiating to the back as well as suprapubic area with complaints of nausea has had some small amount of blood in the stool Patient's CT did not show any abnormalities or we will recommend to repeat the CT since because of the patient has got had significant pain in the left lower quadrant to ensure there was any real more diverticular changes with diverticulitis. We will recommend also an elective colonoscopy after the diverticulitis is better especially because of the history of bleeding as well as abdominal problems symptoms. Thank you Dr. Martinez Plan discussed with: Patient KAILYN MARTINEZ MD Dec 22, 2024 18:36
--- NOTE | 2024-12-22 19:28 | DVH ---
Exam: CT CT AB PEL WITH IV CON ONLY History: rule out diverticulitis Comparison Study: CT CT AB PEL WO CON-NO ORAL OR IV on DOS: 12/20/24 TECHNIQUE: A digital order processing specialist image was obtained. During the uneventful, intravenous administration of contrast material, multislice data acquisition was obtained through the abdomen and pelvis. The data set was subsequently reconstructed into multiplanar reformats. RADIATION DOSE: CTDI vol 9.4 mGy. DLP 494.6 mGy.cm Findings: Lungs: Basilar atelectasis/scarring. Liver: Unremarkable. Spleen: Unremarkable. Pancreas: Unremarkable. Gallbladder: Prior cholecystectomy. Adrenals: Unremarkable Kidneys: Bilateral renal cysts. No hydronephrosis. Pelvic Viscera: Prior hysterectomy. Vasculature: Unremarkable. Retroperitoneum: Unremarkable. Bowel: No bowel obstruction. No CT evidence of acute diverticulitis. Moderate stool burden. Musculoskeletal: Nonspecific small region of sclerosis along the inferior endplate of L4. Soft tissues: Unremarkable Impression: 1. No CT evidence of diverticulitis or acute abdominopelvic abnormality. 2. Incidental findings as detailed.
[2024-12-23] VITALS (7 sets, daily range): BP systolic 110–159; BP diastolic 67–86; PULSE 17–70; RESP 17–20; TEMP 97.2–98.2; O2SAT 95–97
--- NOTE | 2024-12-23 10:36 | DVHPN2 ---
Reviewed: Care Plan, H&P, Labs, Medications, Previous Orders, Radiology Changes from previous H/P or p: No Changes Gastrointestinal: Abdominal Pain, Hematochezia Objective Vitals Vital Signs Date Time Temp Pulse Resp B/P (MAP) Pulse Ox O2 Delivery O2 Flow Rate FiO2 12/23/24 08:00 58 20 95 Room Air* 0 21 12/23/24 05:00 97.7 113/73 (86) 97.7 Intake/Output Intake and Output 12/23/24 07:00 Intake Total 1825 ml Balance 1825 ml Intake Oral 1425 ml IV Total 400 ml # Voids 7 # Bowel Movements 1 Medications Current Medications Medications Dose Ordered Sig/Zach Route Start Time Stop Time Status Last Admin Dose Admin Acetaminophen/ Hydrocodone Bitart 1 tab Q4HP PRN PO 12/20/24 14:30 12/23/24 04:12 1 TAB Ondansetron HCl 4 mg Q4HP PRN IV 12/20/24 14:30 12/22/24 20:29 4 MG Acetaminophen 650 mg Q6HP PRN PO 12/20/24 14:30 12/22/24 13:54 650 MG Morphine Sulfate 2 mg Q4HPRN PRN IV 12/20/24 14:30 12/21/24 00:56 2 MG Metronidazole 100 ml @ 100 mls/hr Q8HR IV 12/21/24 15:27 12/23/24 04:59 100 MLS/HR Levofloxacin/ Dextrose 100 ml @ 100 mls/hr DAILY IV 12/22/24 10:00 12/23/24 10:07 100 MLS/HR Laboratory Results Laboratory Tests 12/21/24 04:51 12/22/24 04:44 Urinalysis Test 12/20/24 11:05 Urine Color Colorless (Yellow) Urine Clarity Clear (Clear) Urine pH 6.5 (5.0-9.0) Urine Specific [place] 1.006 (1.001-1.035) Urine Protein Negative (Negative) Urine Ketones Negative (Negative) Urine Blood Negative /uL (Negative) Urine Nitrite Negative (Negative) Urine Bilirubin Negative (Negative) Urine Urobilinogen Normal mg/dL (Negative) Urine Leukocyte Esterase Negative /uL (Negative) Urine RBC <1 /hpf (0 - 4) Urine Microscopic WBC 1 /HPF (0-5) Urine Squamous Epithelial Cells Few /hpf (<5) Urine Bacteria None seen /hpf (None Seen) Urine Glucose Normal mg/dL (Normal) Labs and/or images reviewed: Labs reviewed by me, Image(s) reviewed by me Assessment/Plan Assessment/Plan Blood in the stool: Hemoglobin 15.5, Acute intractable abdominal pain History of diverticulitis Levaquin Flagyl GI consult by Dr. Martinez appreciated advised conservative management with the IV antibiotics for diverticulitis Repeat CT abdomen pelvis without contrast shows no evidence of diverticulitis History of left breast tumor Patient still complaining of moderate left lower quadrant abdominal pain RN Ana Luisa at bedside Plan discussed with: Patient Date of Service: Dec 23, 2024 Billing Provider: MICHAEL MURPHY MD Common Visit Codes: [id number] INP/OBS CARE(HIGH) MICHAEL MURPHY MD Dec 23, 2024 10:36
--- NOTE | 2024-12-23 17:25 | DVHPN2 ---
Progress Note - Dictate Date Seen: Dec 23, 2024 Medical Necessity Reason Pt with a Central, PICC or Fol: No Subjective Patient is feeling slightly better today with the abdominal pain is much better no fever no nausea vomiting diarrhea or bleeding vital signs Vital Sign Date Time Temp Pulse Resp B/P (MAP) Pulse Ox O2 Delivery O2 Flow Rate FiO2 12/23/24 15:00 98.2 64 20 118/80 (93) 96 98.2 12/23/24 08:00 Room Air* 0 21 Total Intake and Output 12/22/24 12/22/24 12/23/24 15:00 23:00 07:00 Intake Total 200 ml 725 ml 900 ml Balance 200 ml 725 ml 900 ml medications Current Medications Medications Dose Ordered Sig/Zach Route Start Time Stop Time Status Last Admin Dose Admin Acetaminophen/ Hydrocodone Bitart 1 tab Q4HP PRN PO 12/20/24 14:30 12/23/24 04:12 1 TAB Ondansetron HCl 4 mg Q4HP PRN IV 12/20/24 14:30 12/22/24 20:29 4 MG Acetaminophen 650 mg Q6HP PRN PO 12/20/24 14:30 12/23/24 11:43 650 MG Morphine Sulfate 2 mg Q4HPRN PRN IV 12/20/24 14:30 12/21/24 00:56 2 MG Metronidazole 100 ml @ 100 mls/hr Q8HR IV 12/21/24 15:27 12/23/24 14:00 100 MLS/HR Levofloxacin/ Dextrose 100 ml @ 100 mls/hr DAILY IV 12/22/24 10:00 12/23/24 10:07 100 MLS/HR objective Abdomen is soft mild tenderness in the left lower quadrant no masses no rigidity no guarding no masses tenderness is much better than yesterday. Patient is on antibiotics laboratory and microbiology Laboratory Tests 12/22/24 04:44 12/21/24 04:51 Test 12/21/24 04:51 Range/Units Serum Glucose 84 74-106 mg/dL Assessment/Plan 54-year-old female with a history of abdominal pain in the left lower quadrant radiating to the back as well as suprapubic area with complaints of nausea has had some small amount of blood in the stool Patient's CT did not show any abnormalities or we will recommend to repeat the CT since because of the patient has got had significant pain in the left lower quadrant to ensure there was any real more diverticular changes with diverticulitis. Symptoms are much better we will try to increase the diet and then okay to send home on antibiotic We will recommend to follow up with me in about 4-6 weeks for further workup including colonoscopy We will recommend also an elective colonoscopy after the diverticulitis is better especially because of the history of bleeding as well as abdominal problems symptoms. Thank you Dr. Martinez Plan discussed with: Patient KAILYN MARTINEZ MD Dec 23, 2024 17:25
[2024-12-24 01:00] VITALS: BP 122/73; PULSE 59; RESP 18; TEMP 98; O2SAT 100
[2024-12-24 05:00] VITALS: BP 120/76; PULSE 68; RESP 18; TEMP 98.1; O2SAT 99
[2024-12-24 08:00] VITALS: PULSE 70; RESP 17; O2SAT 95
[2024-12-24 09:00] VITALS: BP 115/74; PULSE 70; RESP 17; TEMP 97; O2SAT 95
[2024-12-24] MEDS: IOHEXOL 300 MG/ML 100ML BOTTLE IJ ONE (09:53)
[2024-12-24] MEDS ORDERED: LEVO500T91 PO ×2 (13:06)
[2024-12-24] MEDS ORDERED: TRAM-626 PO ×2 (13:06)
[2024-12-24] MEDS ORDERED: METR-344 PO ×2 (13:06)
--- NOTE | 2024-12-24 13:11 | DVHDS2 ---
Discharge Summary Date of Admission Dec 20, 2024 at 14:17 Date of Discharge: Dec 24, 2024 Admitting Diagnosis Left lower quadrant abdominal pain Wounds: None Labs/Diagnostic Data: Laboratory Results Test 12/22/24 20:30 12/22/24 04:44 12/21/24 04:51 12/20/24 20:03 Stool Occult Blood Negative (Negative) Stool Occult Blood Sample #3 (Negative) White Blood Count 6.3 10^3/uL (4.4-10.8) Red Blood Count 4.75 10^6/uL (4.0-5.20) Hemoglobin 15.3 g/dL (12.2-16.2) Hematocrit 44.2 % (36.0-46.0) Mean Corpuscular Volume 93.2 fL (80.0-100.0) Mean Corpuscular Hemoglobin 32.3 pg (28.0-32.0) Mean Corpuscular Hemoglobin Concent 34.7 g/dL (32.0-36.0) Red Cell Distribution Width 12.8 % (11.8-14.3) Platelet Count 288 10^3/uL (140-450) Mean Platelet Volume 8.6 fL (6.9-10.8) Neutrophils (%) (Auto) 58.2 % (37.0-80.0) Lymphocytes (%) (Auto) 31.3 % (10.0-50.0) Monocytes (%) (Auto) 7.2 % (0.0-12.0) Eosinophils (%) (Auto) 2.8 % (0.0-7.0) Basophils (%) (Auto) 0.5 % (0.0-2.0) Neutrophils # (Auto) 3.7 10 ^3/uL (1.6-8.6) Lymphocytes # (Auto) 2.0 10 ^3/uL (0.4-5.4) Monocytes # (Auto) 0.5 10 ^3/uL (0-1.3) Eosinophils # (Auto) 0.2 10 ^3/uL (0-0.8) Basophils # (Auto) 0 10 ^3/uL (0-0.2) Nucleated Red Blood Cells 0.2 % Sodium Level 140 mmol/L (136-145) Potassium Level 3.9 mmol/L (3.5-5.1) Chloride Level 103 mmol/L (98-107) Carbon Dioxide Level 28 mmol/L (20-31) Anion Gap 9 (5-15) Blood Urea Nitrogen 10 mg/dL (9-23) Creatinine 0.68 mg/dL (0.550-1.02) Glomerular Filtration Rate Calc 103 mL/min (>90) BUN/Creatinine Ratio 14.7 (10.0-20.0) Serum Glucose 84 mg/dL (74-106) Calcium Level 9.0 mg/dL (8.7-10.4) Total Bilirubin 0.6 mg/dL (0.2-1.0) Aspartate Amino Transferase (AST) 24 U/L (13-40) Alanine Aminotransferase (ALT) 18 U/L (7-40) Alkaline Phosphatase 63 U/L (46-116) Total Protein 6.8 g/dL (5.7-8.2) Albumin 4.1 g/dL (3.2-4.8) Hepatitis B Surface Antigen Negative (Negative) Hepatitis C Antibody Negative (Negative) Test 12/20/24 14:54 12/20/24 11:05 12/20/24 10:04 Iron Level 48 ug/dL (50-170) Total Iron Binding Capacity 328 ug/dL (250-425) Percent Iron Saturation 14.6 % (15-50) Vitamin D 25-Hydroxy 42.3 ng/mL (30.0-100) Folic Acid 17.71 ng/mL (>5.38) Urine Color Colorless (Yellow) Urine Clarity Clear (Clear) Urine pH 6.5 (5.0-9.0) Urine Specific [place] 1.006 (1.001-1.035) Urine Protein Negative (Negative) Urine Ketones Negative (Negative) Urine Blood Negative /uL (Negative) Urine Nitrite Negative (Negative) Urine Bilirubin Negative (Negative) Urine Urobilinogen Normal mg/dL (Negative) Urine Leukocyte Esterase Negative /uL (Negative) Urine RBC <1 /hpf (0 - 4) Urine Microscopic WBC 1 /HPF (0-5) Urine Squamous Epithelial Cells Few /hpf (<5) Urine Bacteria None seen /hpf (None Seen) Urine Glucose Normal mg/dL (Normal) Reticulocyte Count (auto) 0.74 % (0.5-1.5) Lactic Acid Level 1.1 mmol/L (0.4-2.0) Lipase 33 U/L (12-53) Other Laboratory Tests 12/22/24 04:44 12/21/24 04:51 Brief Hx & Hospital Course: 64-year-old female with a history of diverticulosis came in complaining of blood in the stool hemoglobin 15.5 CT abdomen pelvis without contrast showed diverticulosis treated with Levaquin Flagyl for possible diverticulitis. GI consult by Dr. Martinez repeat CT abdomen pelvis without contrast showed no evidence of diverticulitis patient has a history of left breast tumor. The patient feels better tolerating regular diet discharged home prescription for Levaquin Flagyl tramadol transmitted to the pharmacy She will follow up with the Dr. Martinez in four weeks for colonoscopy Consults/Reason for consult GI Dr. Martinez Operations or Procedures CT abdomen pelvis without contrast Condition at Discharge: Fair Final Diagnosis/Problems List Blood in the stool: Hemoglobin 15.5, Acute intractable abdominal pain History of diverticulitis Levaquin Flagyl GI consult by Dr. Martinez appreciated advised conservative management with the IV antibiotics for diverticulitis Repeat CT abdomen pelvis without contrast shows no evidence of diverticulitis History of left breast tumor Discharge Disposition: Home Discharge Instruct/Medications Diet: Regular Activity: Light activity Follow Up/Referral: Resume all your previous home medications follow up with the GI Dr. Martinez in 4 weeks for colonoscopy Medications: Levaquin Flagyl Tramadol Transmitted to pharmacy Scheduled Levofloxacin Hemihydrate (Levaquin 500 Mg), 1 TAB PO DAILY Metronidazole (Flagyl), 1 TAB PO TID Scheduled PRN Tramadol HCl (Tramadol HCl), 50 MG PO QID PRN 39 (Time taken for discharge summary 39 minutes) Discharge Statement: "Patient was advised to return to the ER or call 911 if any headaches, dizziness, shortness of breath, chest pain, abdominal pain, bleeding, fevers, or worsening of medical condition. Patient was counseled about treatment plan, medications, possible side effects, patientverbalized understanding. All questions were answered to the best of my ability. This discharge took greater then 30 minutes in planning, reviewing documentation, counseling the patient, and discussing with other team members." ASSESSMENT ASSESSMENT Hospital Course improved. Assessment Blood in the stool: Hemoglobin 15.5, Acute intractable abdominal pain History of diverticulitis Levaquin Flagyl GI consult by Dr. Martinez appreciated advised conservative management with the IV antibiotics for diverticulitis Repeat CT abdomen pelvis without contrast shows no evidence of diverticulitis History of left breast tumor Date of Service: Dec 24, 2024 Billing Provider: MICHAEL MURPHY MD Common Visit Codes: [id number] INP/OBS CARE(HIGH) MICHAEL MURPHY MD Dec 24, 2024 13:11
[2024-12-24 13:44] VITALS: BP 115/74; PULSE 70; RESP 17; TEMP 97; O2SAT 95
== END 2024-12-24 14:06 | disposition home or self-care (01) | DRG 392 ==
LOC: ER 09:35 → OVERFLOW 14:17 → WEST WING 17:42
PROVIDERS: ADMIT Family Medicine; ATTEND Family Medicine
DX: R10.32 Left lower quadrant pain (principal); K57.30 Diverticulosis of large intestine without perforation or abscess without bleeding; Z80.1 Family history of malignant neoplasm of trachea, bronchus and lung; Z82.5 Family history of asthma and other chronic lower respiratory diseases; Z90.49 Acquired absence of other specified parts of digestive tract; Z90.710 Acquired absence of both cervix and uterus
CPT/HCPCS: 36415; 74176; 74177; 80053; 81001; 82270; 82306; 82746; 83540; 83550; 83605; 83690; 84425; 85025; 85045; 86803; 87340; 96361; 96374; 96375; G0378; J1885; J1956; J2405; J3490